=== PATIENT | female | born 1980 | race Caucasian/White ===

== ENCOUNTER 2020-04-01 21:16 | Inpatient (IN) | payer OTHER ==
[~2020-04-01] VITALS: Ht 175.3 cm; Wt 92.7 kg
[2020-04-01 21:20] VITALS: Ht 175.3 cm; Wt 92.7 kg
[2020-04-01 22:39] LABS: BASOPHIL % 0.6 % (0-2); PLATELET COUNT 289 x10^3mcL (130-400); RED CELL DISTRIBUTION WIDTH 12.6 % (11.5-14.5)
[2020-04-01 22:54] LABS: CALCIUM 7.9 mg/dL (8.5-10.1); CARBON DIOXIDE 28.5 mmol/L (21-32); CHLORIDE SERUM 105 mmol/L (98-107); GFR1 > 60 mL/min; GLUCOSE SERUM 118 mg/dL (74-106); POTASSIUM SERUM 3.6 mmol/L (3.5-5.1); SODIUM SERUM 139 mmol/L (136-145)
[2020-04-01 22:59] LABS: ALKALINE PHOSPHATASE 74 U/L (46-116); ALT/SGPT 26 U/L (14-59); AST/SGOT 19 U/L (15-37); BILIRUBIN TOTAL 0.1 mg/dL (0.20-1.00); LIPASE 127 IU/L (73-393); TOTAL PROTEIN, SERUM 6.7 g/dL (6.4-8.2)
[2020-04-01 23:00] LABS: ALBUMIN 3.3 g/dL (3.4-5.0)
[2020-04-02] MEDS ORDERED: NORCO 10-325 T1 EACH PO (02:01)
[2020-04-02] MEDS ORDERED: ADV200 PO (02:02)
[2020-04-02 02:40] LABS: CHOLESTEROL/HDL RATIO 2.6; MAGNESIUM 2.1 mg/dL (1.8-2.4); PHOSPHOROUS 3.4 mg/dL (2.5-4.9)
[2020-04-02 02:41] VITALS: BP 135/55
[2020-04-02 03:15] LABS: microscopic required? YES
[2020-04-02 03:16] LABS: urine erythrocyte 3+ (NEGATIVE)
[2020-04-02 07:07] LABS: BASOPHIL % 0.2 % (0-2); PLATELET COUNT 241 x10^3mcL (130-400); RED CELL DISTRIBUTION WIDTH 12.5 % (11.5-14.5)
[2020-04-02 07:41] LABS: ALKALINE PHOSPHATASE 66 U/L (46-116); ALT/SGPT 24 U/L (14-59); AST/SGOT 13 U/L (15-37); BILIRUBIN DIRECT 0.15 mg/dL (0.0-0.2); BILIRUBIN TOTAL 0.43 mg/dL (0.20-1.00); CALCIUM 7.7 mg/dL (8.5-10.1); CARBON DIOXIDE 21.9 mmol/L (21-32); CHLORIDE SERUM 105 mmol/L (98-107); CREATININE SERUM 0.8 mg/dL (0.6-1.0); GFR1 > 60 mL/min; GLUCOSE SERUM 133 mg/dL (74-106); MAGNESIUM 1.9 mg/dL (1.8-2.4); PHOSPHOROUS 2.1 mg/dL (2.5-4.9); POTASSIUM SERUM 3.6 mmol/L (3.5-5.1); SODIUM SERUM 137 mmol/L (136-145); TOTAL PROTEIN, SERUM 6.4 g/dL (6.4-8.2)
[2020-04-02 07:44] LABS: ALBUMIN 3.2 g/dL (3.4-5.0)
[2020-04-02 09:07] VITALS: BP 128/62
[2020-04-02 12:23] VITALS: BP 147/76
[2020-04-02 17:15] VITALS: BP 131/62
[2020-04-02 20:08] VITALS: BP 128/62
[2020-04-03 05:15] VITALS: BP 131/86
[2020-04-03 07:06] LABS: BASOPHIL % 0.5 % (0-2); PLATELET COUNT 233 x10^3mcL (130-400); RED CELL DISTRIBUTION WIDTH 12.5 % (11.5-14.5)
[2020-04-03 07:29] LABS: CALCIUM 7.8 mg/dL (8.5-10.1); CARBON DIOXIDE 25.6 mmol/L (21-32); CHLORIDE SERUM 104 mmol/L (98-107); CREATININE SERUM 0.9 mg/dL (0.6-1.0); GFR1 > 60 mL/min; GLUCOSE SERUM 113 mg/dL (74-106); MAGNESIUM 2.1 mg/dL (1.8-2.4); PHOSPHOROUS 2.4 mg/dL (2.5-4.9); POTASSIUM SERUM 3.7 mmol/L (3.5-5.1); SODIUM SERUM 138 mmol/L (136-145)
[2020-04-03 09:15] VITALS: BP 114/61
[2020-04-03 16:40] VITALS: BP 123/77
[2020-04-03 21:56] VITALS: BP 121/60
[2020-04-04 05:45] VITALS: BP 127/55
[2020-04-04 07:17] LABS: BASOPHIL % 0.2 % (0-2); PLATELET COUNT 213 x10^3mcL (130-400); RED CELL DISTRIBUTION WIDTH 12.6 % (11.5-14.5)
[2020-04-04 07:48] LABS: CALCIUM 7.9 mg/dL (8.5-10.1); CARBON DIOXIDE 27.3 mmol/L (21-32); CHLORIDE SERUM 106 mmol/L (98-107); CREATININE SERUM 0.8 mg/dL (0.6-1.0); GFR1 > 60 mL/min; GLUCOSE SERUM 102 mg/dL (74-106); POTASSIUM SERUM 3.3 mmol/L (3.5-5.1); SODIUM SERUM 141 mmol/L (136-145)
[2020-04-04 08:09] VITALS: BP 126/62
[2020-04-04 12:05] VITALS: BP 128/73
[2020-04-04 12:12] VITALS: BP 128/80
[2020-04-04 17:09] VITALS: BP 123/71
[2020-04-04 21:07] VITALS: BP 125/70
[2020-04-05 05:30] VITALS: BP 138/77
[2020-04-05 07:47] VITALS: BP 116/63
[2020-04-05] MEDS ORDERED: SIMETHICONE80 MG CH (08:28)
[2020-04-05 08:32] LABS: BASOPHIL % 0.4 % (0-2); PLATELET COUNT 246 x10^3mcL (130-400); RED CELL DISTRIBUTION WIDTH 12.7 % (11.5-14.5)
[2020-04-05 10:02] LABS: CHLORIDE SERUM 103 mmol/L (98-107); CREATININE SERUM 0.8 mg/dL (0.6-1.0); GFR1 > 60 mL/min; GLUCOSE SERUM 74 mg/dL (74-106); POTASSIUM SERUM 3.1 mmol/L (3.5-5.1); SODIUM SERUM 140 mmol/L (136-145)
[2020-04-05 10:11] VITALS: BP 116/63
[2020-04-05 11:48] VITALS: BP 124/68
== END 2020-04-05 12:20 | disposition home or self-care (01) | DRG 263 ==
LOC: ED 21:16 → MU 04-02 01:34
PROVIDERS: Family Medicine; Surgery; ADMIT Internal Medicine; ATTEND Internal Medicine
PROC: 0FT44ZZ Resection of Gallbladder, Percutaneous Endoscopic Approach (ICD-10-PCS; principal; 2020-04-03 10:30)
DX: K80.00 Calculus of gallbladder with acute cholecystitis without obstruction (principal); K65.9 Peritonitis, unspecified; F17.210 Nicotine dependence, cigarettes, uncomplicated; M54.9 Dorsalgia, unspecified; G89.29 Other chronic pain; K58.9 Irritable bowel syndrome, unspecified; K21.9 Gastro-esophageal reflux disease without esophagitis
CPT/HCPCS: C9113; G0378; J0694; J2175; J2250; J2270; J2405; J2543; J2765; J3010; J3490; J7030; Q0092